=== PATIENT | male | born 1965 | race Hispanic/Latino ===

== ENCOUNTER 2021-06-12 14:03 | Emergency (ER) | payer OTHER ==
[2021-06-12] MEDS ORDERED: methylPREDNISolone Sod Succ/PF 125 MG/2 ML VIAL ONE (14:30)
[2021-06-12] MEDS ORDERED: Azithromycin 250 MG TAB ONE (14:58)
[2021-06-13 17:30] LABS: SARS-CoV-2 PCR by NAA DETECTED (NotDetected)
== END 2021-06-12 15:42 ==
LOC: NAV ERS 14:03
DX: U07.1 COVID-19 (principal); J44.1 Chronic obstructive pulmonary disease with (acute) exacerbation; I10 Essential (primary) hypertension; Z86.73 Personal history of transient ischemic attack (TIA), and cerebral infarction without residual deficits; D64.9 Anemia, unspecified; Z79.82 Long term (current) use of aspirin; Z79.899 Other long term (current) drug therapy
CPT/HCPCS: 71046; 87804; 96374; J2930; U0003; U0005

== ENCOUNTER 2021-06-28 20:03 | Emergency (ER) | payer OTHER ==
[2021-06-28 21:10] LABS: #Eosinphils 0.1 thou/uL (0.0-0.7); #Lymphocytes 0.7 thou/uL (1.20-3.40); #Monocytes 0.3 thou/uL (0.11-0.59); #Neutrophils 4.2 thou/uL (1.40-6.50); %Basophils 0.4 % (0.0-1.0); %Eosinophils 1.9 % (0.0-10.0); %Lymphocytes 13.3 % (21.0-51.0); %Monocytes 5.2 % (0.0-10.0); %Neutrophils 79.2 % (42.0-75.0); Mean Corpuscular HGB CONC 35.4 g/dL (32.0-36.0); Mean Corpuscular Hemoglobin 31.6 pg (27.0-31.0); Mean Corpuscular Volume 89.3 fL (78.0-98.0); Mean Platelet Volume 6.6 fL (7.4-10.4); Platelet Count 145 thou/uL (130-400); RBC Distribution Width 11.2 % (11.5-14.5); Red Blood Cell (RBC) Count 4.74 mill/uL (4.70-6.10); White Blood Cell (WBC) Count 5.4 thou/uL (4.8-10.8)
[2021-06-28] MEDS ORDERED: Ondansetron PF 4 MG/2 ML Vial ONE (21:12)
[2021-06-28 21:26] LABS: ALT (SGPT) 21 U/L (8-55); AST (SGOT) 18 U/L (5-34); Albumin 4.3 g/dL (3.5-5.0); Alkaline Phosphatase 88 U/L (40-110); Anion Gap 13 mmol/L (10-20); BUN (Urea Nitrogen) 10 mg/dL (8.4-25.7); Bilirubin, Total 0.5 mg/dL (0.2-1.2); Calc. Creatinine Clearance 0 mL/min (70-130); Calcium 8.8 mg/dL (7.8-10.44); Carbon Dioxide 22 mmol/L (22-29); Chloride 109 mmol/L (98-107); Globulin 2.3 g/dL (2.4-3.5); Glucose 135 mg/dL (70-105); Protein, Total 6.6 g/dL (6.0-8.3); Sodium 140 mmol/L (136-145)
[2021-06-28] MEDS ORDERED: Meclizine HCl 25 MG TAB ONE (21:34)
[2021-06-28] MEDS ORDERED: HYDROcodone/Acetaminophen 5/325 mg Tablet ONE (22:07)
[2021-06-28 23:01] LABS: SARS-CoV-2 NAA Rapid Test Not Detected (NotDetected)
[2021-06-29] MEDS ORDERED: HYDROcodone/Acetaminophen 5/325 mg Tablet ONE ×2 (00:21→06:27)
[2021-06-29] MEDS ORDERED: carBAMazepine 200 MG TAB PO SCH (03:00)
[2021-06-29] MEDS ORDERED: Ipratropium Bromide 2.5 ml Neb NEB SCH ×3 (03:15→06:00)
[2021-06-29] MEDS ORDERED: Ipratropium Bromide 2.5 ml Neb ONE (03:28)
[2021-06-29 11:26] LABS: Carbamazepine-Tegretol 16.6 ug/mL (4.0-12.0)
== END 2021-06-29 09:35 | disposition short-term general hospital (02) ==
LOC: NAV ERS 20:03
DX: S32.020A Wedge compression fracture of second lumbar vertebra, initial encounter for closed fracture (principal); R53.1 Weakness; Z20.822 Contact with and (suspected) exposure to COVID-19; W19.XXXA Unspecified fall, initial encounter; Z86.73 Personal history of transient ischemic attack (TIA), and cerebral infarction without residual deficits; D51.9 Vitamin B12 deficiency anemia, unspecified; Z79.82 Long term (current) use of aspirin; Z79.899 Other long term (current) drug therapy
CPT/HCPCS: 70450; 72125; 72131; 80053; 80156; 85025; 96374; J2405; U0002

== ENCOUNTER 2022-04-24 14:54 | Emergency (ER) | payer OTHER ==
[2022-04-24] MEDS ORDERED: Ketorolac Tromethamine 30 MG/ML VIAL ONE (16:00)
== END 2022-04-24 16:25 | disposition home or self-care (01) ==
LOC: NAV ERS 14:54
DX: M25.511 Pain in right shoulder (principal); J44.9 Chronic obstructive pulmonary disease, unspecified; I25.10 Atherosclerotic heart disease of native coronary artery without angina pectoris; I10 Essential (primary) hypertension; Z79.899 Other long term (current) drug therapy; Z79.82 Long term (current) use of aspirin
CPT/HCPCS: 96372; J1885

== ENCOUNTER → 2022-06-22 | Emergency (ER) | payer OTHER ==
[~2022-06-22] MED LIST: Amlodipine 10 MG TAB PO SCH; Amlodipine 5 MG TAB ONE; Aspirin Chewable 81 MG TAB ONE; Aspirin Chewable 81 MG TAB PO SCH; Carvedilol 3.125 MG TAB ONE; Carvedilol 3.125 MG TAB PO SCH; Morphine 2 MG/ML VIAL ONE; Morphine 4 MG/ML VIAL ONE; Ondansetron ODT 4 MG TAB ONE; Sertraline 100 MG TAB PO SCH; Sertraline 25 MG TAB ONE; Tamsulosin HCl 0.4 MG CAP ONE; Tamsulosin HCl 0.4 MG CAP PO SCH; Ventolin HFA Inhaler 60 PUFF INHALER ONE; carBAMazepine 200 MG TAB ONE; carBAMazepine 200 MG TAB PO SCH; diphenhydrAMINE 50 MG/ML VIAL ONE
[2022-06-22 22:59] LABS: #Eosinphils 0.1 thou/uL (0.0-0.7); #Lymphocytes 0.5 thou/uL (1.20-3.40); #Monocytes 0.5 thou/uL (0.11-0.59); #Neutrophils 4.7 thou/uL (1.40-6.50); %Basophils 0.6 % (0.0-1.0); %Eosinophils 1.2 % (0.0-10.0); %Lymphocytes 9.3 % (21.0-51.0); %Monocytes 8.5 % (0.0-10.0); %Neutrophils 80.5 % (42.0-75.0); Hemoglobin 15.8 g/dL (14.0-18.0); Mean Corpuscular HGB CONC 35.1 g/dL (32.0-36.0); Mean Corpuscular Hemoglobin 31.5 pg (27.0-31.0); Mean Corpuscular Volume 89.9 fl (78.0-98.0); Mean Platelet Volume 6.1 fL (7.4-10.4); Platelet Count 144 10x3/uL (130-400); RBC Distribution Width 11.8 % (11.5-14.5); Red Blood Cell (RBC) Count 5.01 mill/uL (4.70-6.10); White Blood Cell (WBC) Count 5.8 10x3/uL (4.8-10.8)
[2022-06-22 23:08] LABS: PTT 26.9 sec (22.9-36.1); Prothrombin Time 13.6 sec (12.0-14.7)
[2022-06-22 23:16] LABS: ALT (SGPT) 25 U/L (8-55); AST (SGOT) 19 U/L (5-34); Albumin 4.6 g/dL (3.5-5.0); Alkaline Phosphatase 79 U/L (40-110); Anion Gap 12 mmol/L (10-20); BUN (Urea Nitrogen) 15 mg/dL (8.4-25.7); Bilirubin, Total 0.8 mg/dL (0.2-1.2); Calc. Creatinine Clearance 0 mL/min (70-130); Calcium 8.9 mg/dL (7.8-10.44); Carbon Dioxide 23 mmol/L (22-29); Chloride 108 mmol/L (98-107); Estimated GFR 95; Globulin 2.4 g/dL (2.4-3.5); Glucose 94 mg/dL (70-105); Sodium 139 mmol/L (136-145)
[2022-06-22 23:51] LABS: SARS-CoV-2 NAA Rapid Test DETECTED (NotDetected)
[2022-06-23 02:05] LABS: Troponin I Less than 0.010 ng/mL (< 0.028)
[2022-06-23 05:02] LABS: Troponin I Less than 0.010 ng/mL (< 0.028)
[2022-06-23 11:24] LABS: Troponin I Less than 0.010 ng/mL (< 0.028)
[2022-06-23 17:07] LABS: Troponin I Less than 0.010 ng/mL (< 0.028)
== END ==
LOC: NAV ERS 22:33
DX: U07.1 COVID-19 (principal); R07.89 Other chest pain; J44.9 Chronic obstructive pulmonary disease, unspecified; I25.10 Atherosclerotic heart disease of native coronary artery without angina pectoris; I10 Essential (primary) hypertension; Z79.899 Other long term (current) drug therapy; Z79.82 Long term (current) use of aspirin; Z87.891 Personal history of nicotine dependence
CPT/HCPCS: 36415; 71045; 80053; 83880; 84484; 85025; 85379; 85610; 85730; 93005; 96374; 96375; 96376; J1200; J2270; J2272; Q0162; U0002

== ENCOUNTER 2022-07-09 11:50 | Emergency (ER) | payer OTHER ==
[2022-07-09 12:10] LABS: #Eosinphils 0.1 thou/uL (0.0-0.7); #Lymphocytes 0.9 thou/uL (1.20-3.40); #Monocytes 0.2 thou/uL (0.11-0.59); #Neutrophils 3.7 thou/uL (1.40-6.50); %Basophils 0.7 % (0.0-1.0); %Monocytes 4.5 % (0.0-10.0); %Neutrophils 74.8 % (42.0-75.0); Hemoglobin 15.1 g/dL (14.0-18.0); Mean Corpuscular HGB CONC 34.9 g/dL (32.0-36.0); Mean Corpuscular Hemoglobin 31.1 pg (27.0-31.0); Mean Platelet Volume 6.4 fL (7.4-10.4); Platelet Count 158 10x3/uL (130-400); RBC Distribution Width 11.9 % (11.5-14.5); Red Blood Cell (RBC) Count 4.85 mill/uL (4.70-6.10)
[2022-07-09] MEDS ORDERED: Morphine 4 MG/ML VIAL ONE (12:15)
[2022-07-09] MEDS ORDERED: Sodium Chloride 0.9% 1,000 ML ONE (12:15)
[2022-07-09] MEDS ORDERED: Ondansetron PF 4 MG/2 ML Vial ONE (12:15)
[2022-07-09] MEDS ORDERED: methylPREDNISolone Sod Succ/PF 125 MG/2 ML VIAL ONE (12:27)
[2022-07-09] MEDS ORDERED: Famotidine/PF 20 mg/2ml Vial ONE (12:27)
[2022-07-09] MEDS ORDERED: diphenhydrAMINE 50 MG/ML VIAL ONE (12:27)
[2022-07-09 12:28] LABS: ALT (SGPT) 29 U/L (8-55); AST (SGOT) 20 U/L (5-34); Albumin 4.4 g/dL (3.5-5.0); Alkaline Phosphatase 80 U/L (40-110); Anion Gap 12 mmol/L (10-20); BUN (Urea Nitrogen) 15 mg/dL (8.4-25.7); Bilirubin, Total 0.8 mg/dL (0.2-1.2); Calc. Creatinine Clearance 0 mL/min (70-130); Calcium 8.9 mg/dL (7.8-10.44); Carbon Dioxide 22 mmol/L (22-29); Chloride 109 mmol/L (98-107); Estimated GFR 95; Globulin 2.1 g/dL (2.4-3.5); Glucose 162 mg/dL (70-105); Lipase 11 U/L (8-78); Magnesium 2.1 mg/dL (1.6-2.6); Potassium 4.1 mmol/L (3.5-5.1); Protein, Total 6.5 g/dL (6.0-8.3); Sodium 139 mmol/L (136-145)
[2022-07-09] MEDS ORDERED: cefTRIAXone\\ROCEPHIN 2 GM VIAL ONE (13:08)
[2022-07-09] MEDS ORDERED: Sodium Chloride 0.9% 100 ML ONE (13:09)
[2022-07-09 13:18] LABS: Bilirubin Negative (Negative); Blood, Urine Negative (Negative); Clarity Clear (Clear); Glucose, Urine (Dipstick) Negative (Negative); Ketone, Urine Negative (Negative); Leukocyte Negative (Negative); Nitrite Negative (Negative); Protein, Urine (Dipstick) Negative (Neg-Trace); Urobilinogen 0.2 mg/dL (Less than 2); pH, Urine 7.5 (5.0-9.0)
[2022-07-09] MEDS ORDERED: Ketorolac Tromethamine 30 MG/ML VIAL ONE (14:04)
[2022-07-09 15:06] LABS: Troponin I Less than 0.010 ng/mL (< 0.028)
== END 2022-07-09 15:30 ==
LOC: NAV ERS 11:50
DX: R07.89 Other chest pain (principal); J44.9 Chronic obstructive pulmonary disease, unspecified; I25.10 Atherosclerotic heart disease of native coronary artery without angina pectoris; I10 Essential (primary) hypertension; Z87.891 Personal history of nicotine dependence; Z79.899 Other long term (current) drug therapy; Z79.82 Long term (current) use of aspirin
CPT/HCPCS: 36415; 71045; 71250; 80053; 81003; 82140; 83605; 83690; 83735; 84484; 85025; 87040; 93005; 96361; 96365; 96375; J0696; J1200; J1885; J2270; J2405; J2930; J7050; S0028

== ENCOUNTER 2022-09-26 05:57 | Emergency (ER) | payer OTHER ==
[2022-09-26 06:44] LABS: #Eosinphils 0.1 thou/uL (0.0-0.7); #Lymphocytes 0.7 thou/uL (1.20-3.40); #Monocytes 0.2 thou/uL (0.11-0.59); #Neutrophils 2.4 thou/uL (1.40-6.50); %Basophils 0.7 % (0.0-1.0); %Eosinophils 2.8 % (0.0-10.0); %Lymphocytes 20.5 % (21.0-51.0); %Monocytes 6.1 % (0.0-10.0); %Neutrophils 69.9 % (42.0-75.0); Hemoglobin 15.1 g/dL (14.0-18.0); Mean Corpuscular HGB CONC 34.6 g/dL (32.0-36.0); Mean Corpuscular Hemoglobin 30.9 pg (27.0-31.0); Mean Corpuscular Volume 89.3 fl (78.0-98.0); Mean Platelet Volume 5.8 fL (7.4-10.4); Platelet Count 120 10x3/uL (130-400); RBC Distribution Width 11.8 % (11.5-14.5); White Blood Cell (WBC) Count 3.5 10x3/uL (4.8-10.8)
[2022-09-26 07:00] LABS: ALT (SGPT) 25 U/L (8-55); AST (SGOT) 20 U/L (5-34); Albumin 4.4 g/dL (3.5-5.0); Alkaline Phosphatase 76 U/L (40-110); Anion Gap 13 mmol/L (10-20); BUN (Urea Nitrogen) 15 mg/dL (8.4-25.7); Bilirubin, Total 0.5 mg/dL (0.2-1.2); CK (CPK) 57 U/L (30-200); Calc. Creatinine Clearance 0 mL/min (70-130); Calcium 8.9 mg/dL (7.8-10.44); Carbon Dioxide 20 mmol/L (22-29); Chloride 109 mmol/L (98-107); Estimated GFR 95; Globulin 2.3 g/dL (2.4-3.5); Glucose 197 mg/dL (70-105); Lipase 20 U/L (8-78); Potassium 4.2 mmol/L (3.5-5.1); Protein, Total 6.7 g/dL (6.0-8.3); Sodium 138 mmol/L (136-145)
[2022-09-26 08:10] LABS: Dilantin 11.4 ug/mL (10.0-20.0)
[2022-09-26 09:37] LABS: SARS-CoV-2 NAA Rapid Test Not Detected (NotDetected)
[2022-09-26] MEDS ORDERED: Aspirin 325 MG TAB ONE (10:23)
[2022-09-26] MEDS ORDERED: Aspirin Chewable 81 MG TAB ONE (10:23)
[2022-09-26] MEDS ORDERED: Ibuprofen 200 MG TAB ONE (13:33)
[2022-09-26] MEDS ORDERED: Carvedilol 3.125 MG TAB PO SCH (14:30)
[2022-09-26] MEDS ORDERED: Lithium Carbonate 150 MG CAP PO SCH (14:30)
[2022-09-26] MEDS ORDERED: Phenytoin Extended Release 100 MG CAP PO SCH (14:30)
[2022-09-26] MEDS ORDERED: levETIRAcetam 500 MG TAB PO SCH (14:30)
[2022-09-26] MEDS ORDERED: Atorvastatin Calcium 20 MG TAB PO SCH (14:30)
[2022-09-26] MEDS ORDERED: Sertraline 100 MG TAB PO SCH (14:30)
[2022-09-26 14:46] LABS: Bilirubin Negative (Negative); Blood, Urine Negative (Negative); Clarity Clear (Clear); Glucose, Urine (Dipstick) Negative (Negative); Ketone, Urine Negative (Negative); Leukocyte Negative (Negative); Nitrite Negative (Negative); Protein, Urine (Dipstick) Negative (Neg-Trace); Urobilinogen 0.2 mg/dL (Less than 2)
[2022-09-26] MEDS ORDERED: Ondansetron PF 4 MG/2 ML Vial ONE (16:23)
== END 2022-09-26 16:56 | disposition short-term general hospital (02) ==
LOC: NAV ERS 05:57
DX: G40.909 Epilepsy, unspecified, not intractable, without status epilepticus (principal); R27.8 Other lack of coordination; R29.700 NIHSS score 0; J44.9 Chronic obstructive pulmonary disease, unspecified; I25.10 Atherosclerotic heart disease of native coronary artery without angina pectoris; I10 Essential (primary) hypertension; Z20.822 Contact with and (suspected) exposure to COVID-19; Z86.73 Personal history of transient ischemic attack (TIA), and cerebral infarction without residual deficits; Z87.891 Personal history of nicotine dependence; Z86.16 Personal history of COVID-19; Z79.82 Long term (current) use of aspirin; Z79.899 Other long term (current) drug therapy
CPT/HCPCS: 70450; 80053; 80185; 81003; 82550; 83690; 85025; 96374; J2405; U0002

== ENCOUNTER 2022-12-29 16:36 | Emergency (ER) | payer OTHER ==
[2022-12-29] MEDS ORDERED: Morphine 4 MG/ML VIAL ONE (17:14)
[2022-12-29] MEDS ORDERED: Ondansetron ODT 4 MG TAB ONE (17:14)
[2022-12-29] MEDS ORDERED: Ondansetron PF 4 MG/2 ML Vial ONE ×2 (17:15→20:19)
[2022-12-29 17:18] LABS: #Eosinphils 0.1 thou/uL (0.0-0.7); #Monocytes 0.3 thou/uL (0.11-0.59); #Neutrophils 3.4 thou/uL (1.40-6.50); %Basophils 0.4 % (0.0-1.0); %Eosinophils 1.2 % (0.0-10.0); %Lymphocytes 21.1 % (21.0-51.0); %Monocytes 5.4 % (0.0-10.0); Hemoglobin 14.6 g/dL (14.0-18.0); Mean Corpuscular HGB CONC 35.7 g/dL (32.0-36.0); Mean Corpuscular Hemoglobin 30.6 pg (27.0-31.0); Mean Corpuscular Volume 85.5 fl (78.0-98.0); Mean Platelet Volume 6.6 fL (7.4-10.4); Platelet Count 154 10x3/uL (130-400); RBC Distribution Width 11.6 % (11.5-14.5); Red Blood Cell (RBC) Count 4.79 mill/uL (4.70-6.10); White Blood Cell (WBC) Count 4.7 10x3/uL (4.8-10.8)
[2022-12-29 17:37] LABS: ALT (SGPT) 29 U/L (8-55); AST (SGOT) 17 U/L (5-34); Albumin 4.4 g/dL (3.5-5.0); Alkaline Phosphatase 108 U/L (40-110); Anion Gap 14 mmol/L (10-20); BUN (Urea Nitrogen) 8 mg/dL (8.4-25.7); Bilirubin, Total 0.4 mg/dL (0.2-1.2); Calc. Creatinine Clearance 0 mL/min (70-130); Carbon Dioxide 20 mmol/L (22-29); Chloride 110 mmol/L (98-107); Estimated GFR 100; Globulin 2.2 g/dL (2.4-3.5); Glucose 175 mg/dL (70-105); Lipase 19 U/L (8-78); Potassium 3.9 mmol/L (3.5-5.1); Protein, Total 6.6 g/dL (6.0-8.3); Sodium 140 mmol/L (136-145)
[2022-12-29] MEDS ORDERED: Morphine 2 MG/ML VIAL ONE ×2 (18:29→20:19)
[2022-12-29] MEDS ORDERED: Nitroglycerin 2% Ointment 1 INCH/1 GM Packet ONE (20:32)
== END 2022-12-29 21:17 | disposition short-term general hospital (02) ==
LOC: NAV ERS 16:36 → EEVIPCON 16:36 → NAV ERS 21:17
DX: R07.9 Chest pain, unspecified (principal); I25.10 Atherosclerotic heart disease of native coronary artery without angina pectoris; D72.829 Elevated white blood cell count, unspecified; I10 Essential (primary) hypertension; Z87.891 Personal history of nicotine dependence; Z79.82 Long term (current) use of aspirin; Z79.899 Other long term (current) drug therapy
CPT/HCPCS: 71045; 80053; 83690; 84484; 85025; 93005; 96374; 96375; 96376; J2270; J2272; J2405; Q0162

== ENCOUNTER 2023-02-16 03:48 | Emergency (ER) | payer OTHER ==
[2023-02-16] MEDS ORDERED: Ondansetron PF 4 MG/2 ML Vial ONE ×2 (04:10→08:17)
[2023-02-16] MEDS ORDERED: Morphine 4 MG/ML VIAL ONE (04:10)
[2023-02-16 04:11] LABS: %Lymphocytes 16.1 % (21.0-51.0); %Neutrophils 75.5 % (42.0-75.0); Hemoglobin 15.8 g/dL (14.0-18.0); Manual Diff?? NO; Mean Corpuscular HGB CONC 34.4 g/dL (32.0-36.0); Mean Corpuscular Hemoglobin 29.7 pg (27.0-31.0); Mean Corpuscular Volume 86.3 fl (78.0-98.0); Platelet Count 170 10x3/uL (130-400); RBC Distribution Width 11.5 % (11.5-14.5); Red Blood Cell (RBC) Count 5.33 mill/uL (4.70-6.10)
[2023-02-16 04:12] LABS: #Eosinphils 0.1 thou/uL (0.0-0.7); #Monocytes 0.4 thou/uL (0.11-0.59); #Neutrophils 4.5 thou/uL (1.40-6.50); %Basophils 0.5 % (0.0-1.0); %Eosinophils 1.4 % (0.0-10.0); %Monocytes 6.5 % (0.0-10.0)
[2023-02-16 04:26] LABS: Albumin 4.5 g/dL (3.5-5.0); Anion Gap 12 mmol/L (10-20); BUN (Urea Nitrogen) 9 mg/dL (8.4-25.7); Bilirubin, Total 0.8 mg/dL (0.2-1.2); Calc. Creatinine Clearance 0 mL/min (70-130); Calcium 9.2 mg/dL (7.6-10.4); Carbon Dioxide 21 mmol/L (22-29); Chloride 109 mmol/L (98-107); Estimated GFR 108; Glucose 104 mg/dL (70-105); Potassium 4.3 mmol/L (3.5-5.1); Protein, Total 6.8 g/dL (6.0-8.3); Sodium 138 mmol/L (136-145)
[2023-02-16 04:27] LABS: ALT (SGPT) 37 U/L (8-55); AST (SGOT) 21 U/L (5-34); Alkaline Phosphatase 128 U/L (40-110); Globulin 2.3 g/dL (2.4-3.5)
[2023-02-16 04:33] LABS: Troponin I Less than 0.010 ng/mL (< 0.028)
[2023-02-16] MEDS ORDERED: Mag-Al Plus 1200 MG/1200 MG/120 MG/30 ML UDCUP ONE (05:01)
[2023-02-16] MEDS ORDERED: Lidocaine Viscous Sol 2% 15 ml UD Cup ONE (05:01)
[2023-02-16 05:09] LABS: SARS-CoV-2 NAA Rapid Test Not Detected (NotDetected)
[2023-02-16 05:42] LABS: Bilirubin Negative (Negative); Blood, Urine Negative (Negative); Clarity Clear (Clear); Glucose, Urine (Dipstick) Negative (Negative); Ketone, Urine Negative (Negative); Leukocyte Negative (Negative); Nitrite Negative (Negative); Protein, Urine (Dipstick) Trace mg/dL (Neg-Trace); Specific Gravity, Urine 1.025 (1.005-1.030)
[2023-02-16 05:46] LABS: Squamous Epithelial 0-3 HPF (0-3)
[2023-02-16] MEDS ORDERED: Carvedilol 3.125 MG TAB PO SCH (06:15)
[2023-02-16] MEDS ORDERED: Venlafaxine HCl XR 75 MG CAP PO SCH (06:15)
[2023-02-16] MEDS ORDERED: Amlodipine 5 MG TAB PO SCH (06:15)
[2023-02-16] MEDS ORDERED: Tamsulosin HCl 0.4 MG CAP PO SCH (06:15)
[2023-02-16] MEDS ORDERED: carBAMazepine 200 MG TAB PO SCH ×2 (06:15→12:00)
[2023-02-16] MEDS ORDERED: Lithium Carbonate 150 MG CAP PO SCH (06:30)
[2023-02-16] MEDS ORDERED: Morphine 2 MG/ML VIAL ONE (07:56)
[2023-02-16 08:56] LABS: Troponin I Less than 0.010 ng/mL (< 0.028)
== END 2023-02-16 10:15 | disposition home or self-care (01) ==
LOC: NAV ERS 03:48 → EEVIPCON 03:48 → NAV ERS 10:15
DX: R07.2 Precordial pain (principal); R55 Syncope and collapse; J44.9 Chronic obstructive pulmonary disease, unspecified; I10 Essential (primary) hypertension; Z20.822 Contact with and (suspected) exposure to COVID-19; Z87.891 Personal history of nicotine dependence; Z79.82 Long term (current) use of aspirin; Z79.899 Other long term (current) drug therapy
CPT/HCPCS: 36415; 70450; 71045; 80053; 81001; 84484; 85025; 93005; 96374; 96375; 96376; J2270; J2272; J2405; U0002

== ENCOUNTER 2023-03-27 13:54 | Emergency (ER) | payer OTHER ==
[2023-03-27] MEDS ORDERED: Lidocaine 1% (PF) 30 ML VIAL ONE (14:58)
[2023-03-27 15:22] LABS: #Eosinphils 0.1 thou/uL (0.0-0.7); #Lymphocytes 1.2 thou/uL (1.20-3.40); #Monocytes 0.4 thou/uL (0.11-0.59); #Neutrophils 5.2 thou/uL (1.40-6.50); %Basophils 0.2 % (0.0-1.0); %Eosinophils 0.9 % (0.0-10.0); %Lymphocytes 16.8 % (21.0-51.0); %Neutrophils 76.1 % (42.0-75.0); Hematocrit 46.7 % (42.0-52.0); Hemoglobin 16.5 g/dL (14.0-18.0); Mean Corpuscular HGB CONC 35.3 g/dL (32.0-36.0); Mean Corpuscular Hemoglobin 31.1 pg (27.0-31.0); Mean Corpuscular Volume 88.1 fl (78.0-98.0); Mean Platelet Volume 6.2 fL (7.4-10.4); Platelet Count 195 10x3/uL (130-400); RBC Distribution Width 11.9 % (11.5-14.5); White Blood Cell (WBC) Count 6.8 10x3/uL (4.8-10.8)
[2023-03-27] MEDS ORDERED: Ondansetron PF 4 MG/2 ML Vial ONE (15:23)
[2023-03-27] MEDS ORDERED: Morphine 4 MG/ML VIAL ONE (15:23)
[2023-03-27 15:47] LABS: ALT (SGPT) 29 U/L (8-55); AST (SGOT) 19 U/L (5-34); Albumin 4.7 g/dL (3.5-5.0); Alkaline Phosphatase 135 U/L (40-110); Anion Gap 14 mmol/L (10-20); BUN (Urea Nitrogen) 15 mg/dL (8.4-25.7); Bilirubin, Total 0.6 mg/dL (0.2-1.2); Calc. Creatinine Clearance 0 mL/min (70-130); Calcium 9.2 mg/dL (7.8-10.44); Carbon Dioxide 23 mmol/L (22-29); Chloride 106 mmol/L (98-107); Estimated GFR 101; Globulin 2.4 g/dL (2.4-3.5); Glucose 99 mg/dL (70-105); Protein, Total 7.1 g/dL (6.0-8.3); Sodium 139 mmol/L (136-145)
[2023-03-27 16:36] LABS: Dilantin 10.4 ug/mL (10.0-20.0)
[2023-03-27] MEDS ORDERED: levETIRAcetam 500 MG/5 ML VIAL ONE (17:22)
[2023-03-27] MEDS ORDERED: Sodium Chloride 0.9% 100 ML ONE (17:25)
[2023-03-27] MEDS ORDERED: Morphine 2 MG/ML VIAL ONE ×3 (18:31→23:34)
[2023-03-27] MEDS ORDERED: Boostrix 0.5 ML (Tdap) VIAL (>/=7 yrs of age) ONE (20:10)
== END 2023-03-28 | disposition short-term general hospital (02) ==
LOC: NAV ERS 13:54
DX: S01.01XA Laceration without foreign body of scalp, initial encounter (principal); I10 Essential (primary) hypertension; J44.9 Chronic obstructive pulmonary disease, unspecified; Z86.73 Personal history of transient ischemic attack (TIA), and cerebral infarction without residual deficits; Z79.899 Other long term (current) drug therapy; Z86.16 Personal history of COVID-19; Z79.51 Long term (current) use of inhaled steroids; Z87.891 Personal history of nicotine dependence; W18.09XA Striking against other object with subsequent fall, initial encounter
CPT/HCPCS: 12001; 70450; 80053; 80156; 80185; 85025; 90471; 90715; 96365; 96375; 96376; J1953; J2001; J2270; J2272; J2405

== ENCOUNTER 2023-06-17 | Emergency (ER) | payer OTHER ==
[2023-06-17 00:30] LABS: #Eosinphils 0.1 thou/uL (0.0-0.7); #Lymphocytes 0.8 thou/uL (1.20-3.40); #Monocytes 0.3 thou/uL (0.11-0.59); #Neutrophils 3.8 thou/uL (1.40-6.50); %Basophils 0.4 % (0.0-1.0); %Eosinophils 1.7 % (0.0-10.0); %Lymphocytes 16.4 % (21.0-51.0); %Monocytes 6.1 % (0.0-10.0); %Neutrophils 75.4 % (42.0-75.0); Hemoglobin 15.2 g/dL (14.0-18.0); Mean Corpuscular HGB CONC 35.3 g/dL (32.0-36.0); Mean Corpuscular Hemoglobin 31.2 pg (27.0-31.0); Mean Corpuscular Volume 88.4 fl (78.0-98.0); Mean Platelet Volume 6.7 fL (7.4-10.4); Platelet Count 181 10x3/uL (130-400); RBC Distribution Width 11.8 % (11.5-14.5); Red Blood Cell (RBC) Count 4.87 mill/uL (4.70-6.10)
[2023-06-17] MEDS ORDERED: Famotidine/PF 20 mg/2ml Vial ONE (00:42)
[2023-06-17] MEDS ORDERED: Nitroglycerin 2% Ointment 1 INCH/1 GM Packet ONE (00:42)
[2023-06-17] MEDS ORDERED: Sodium Chloride 0.9% 500 ML ONE (00:57)
[2023-06-17 01:12] LABS: Troponin I Less than 0.010 ng/mL (< 0.028)
[2023-06-17 01:25] LABS: ALT (SGPT) 33 U/L (8-55); AST (SGOT) 23 U/L (5-34); Albumin 4.4 g/dL (3.5-5.0); Alkaline Phosphatase 118 U/L (40-110); Anion Gap 11 mmol/L (10-20); BUN (Urea Nitrogen) 12 mg/dL (8.4-25.7); Bilirubin, Total 0.4 mg/dL (0.2-1.2); Calc. Creatinine Clearance 0 mL/min (70-130); Calcium 8.9 mg/dL (7.8-10.44); Carbon Dioxide 24 mmol/L (22-29); Chloride 109 mmol/L (98-107); Estimated GFR 98; Globulin 2.2 g/dL (2.4-3.5); Glucose 123 mg/dL (70-105); Lipase 18 U/L (8-78); Potassium 4.2 mmol/L (3.5-5.1); Protein, Total 6.6 g/dL (6.0-8.3); Sodium 140 mmol/L (136-145)
[2023-06-17] MEDS ORDERED: Lactulose 20 GM (30 mL) UDCUP PO SCH (02:45)
[2023-06-17] MEDS ORDERED: carBAMazepine 200 MG TAB PO SCH (02:45)
[2023-06-17] MEDS ORDERED: Phenytoin 100 MG (4 mL) UDCUP PO SCH (02:45)
[2023-06-17] MEDS ORDERED: Lithium Carbonate 150 MG CAP PO SCH (02:45)
[2023-06-17] MEDS ORDERED: Morphine 2 MG/ML VIAL ONE ×2 (03:19→06:07)
[2023-06-17 03:50] LABS: Troponin I 0.011 ng/mL (< 0.028)
[2023-06-17] MEDS ORDERED: Ondansetron PF 4 MG/2 ML Vial ONE (04:28)
[2023-06-17] MEDS ORDERED: Mag-Al Plus 1200/1200/120 MG (30 mL) UDCUP ONE (05:23)
[2023-06-17] MEDS ORDERED: Lidocaine 2% Viscous 100 ML BOTTLE ONE (05:23)
[2023-06-17] MEDS ORDERED: Promethazine HCl 25 MG/ML VIAL ONE (06:08)
[2023-06-17 06:44] LABS: Troponin I Less than 0.010 ng/mL (< 0.028)
[2023-06-17] MEDS ORDERED: Morphine 4 MG/ML VIAL ONE (10:11)
[2023-06-17 15:10] LABS: Troponin I Less than 0.010 ng/mL (< 0.028)
[2023-06-17] MEDS ORDERED: Nitroglycerin 0.4 MG TAB 1 EACH ONE (15:58)
== END 2023-06-17 18:14 ==
LOC: NAV ERS
DX: R07.9 Chest pain, unspecified (principal); I10 Essential (primary) hypertension; K21.9 Gastro-esophageal reflux disease without esophagitis; J44.9 Chronic obstructive pulmonary disease, unspecified; Z87.891 Personal history of nicotine dependence; Z86.16 Personal history of COVID-19; Z79.899 Other long term (current) drug therapy; Z79.51 Long term (current) use of inhaled steroids
CPT/HCPCS: 71045; 80053; 83690; 84484; 85025; 93005; 96361; 96374; 96375; 96376; J2270; J2272; J2405; J2550; J7030; S0028

== ENCOUNTER 2024-08-14 13:36 | Emergency (ER) | payer OTHER | END 2024-08-14 14:42 | LOC: NAV ERS 13:36 | DX: S43.004A Unspecified dislocation of right shoulder joint, initial encounter (principal); S00.81XA Abrasion of other part of head, initial encounter; J44.9 Chronic obstructive pulmonary disease, unspecified; I25.10 Atherosclerotic heart disease of native coronary artery without angina pectoris; I10 Essential (primary) hypertension; Z87.891 Personal history of nicotine dependence; Z86.73 Personal history of transient ischemic attack (TIA), and cerebral infarction without residual deficits; Z79.51 Long term (current) use of inhaled steroids; Z79.899 Other long term (current) drug therapy; W22.8XXA Striking against or struck by other objects, initial encounter | CPT/HCPCS: 99283 ==